=== PATIENT | female | born 1990 | race Caucasian/White ===

== ENCOUNTER 2017-04-24 22:42 | Emergency (ER) | payer SELFPAY ==
[~2017-04-24] VITALS: Ht 162.6 cm; Wt 100.0 kg
[2017-04-25] MEDS ORDERED: NAPROXEN 250 MG TABLET PO ONE (01:00)
[2017-04-25] MEDS ORDERED: ACETAMINOPHEN/CODEINE 300-30 MG TABLET PO ONE (01:00)
[2017-04-25 01:07] VITALS: BP 132/82
== END 2017-04-25 01:19 | disposition home or self-care (01) ==
LOC: EMS 22:43
DX: S46.012A Strain of muscle(s) and tendon(s) of the rotator cuff of left shoulder, initial encounter (principal); V86.99XA Unspecified occupant of other special all-terrain or other off-road motor vehicle injured in nontraffic accident, initial encounter; Y93.89 Activity, other specified; Y92.413 State road as the place of occurrence of the external cause; Y99.9 Unspecified external cause status
CPT/HCPCS: 29105; 81025; 99284

== ENCOUNTER 2018-06-05 01:04 | Emergency (ER) | payer SELFPAY ==
[~2018-06-05] VITALS: Ht 160 cm; Wt 86.4 kg
[2018-06-05 02:38] LABS: APPEARANCE,URINE CLOUDY (CLEAR); BILIRUBIN,URINE NEGATIVE (NEGATIVE); GLUCOSE, URINE (UA) NEGATIVE (NEGATIVE); KETONES,URINE NEGATIVE (NEGATIVE); LEUKOCYTE ESTERASE ,URINE LARGE (NEGATIVE); NITRATE,URINE NEGATIVE (NEGATIVE); OCCULT BLOOD,URINE NEGATIVE (NEGATIVE); PH,URINE 6.5 (5.0-8.0); PROTEIN,URINE NEGATIVE (NEGATIVE)
[2018-06-05 02:47] LABS: RBC,URINE 0-2 /HPF (0-2)
[2018-06-05 02:48] LABS: BACTERIA,URINE Moderate /HPF (None Seen); SQUAMOUS EPITHELIAL CELL,UR Moderate /LPF (None Seen)
[2018-06-05 02:51] VITALS: BP 136/92
== END 2018-06-05 03:16 | disposition home or self-care (01) ==
LOC: EMS 01:05
DX: N76.0 Acute vaginitis (principal)
CPT/HCPCS: 87086; 99284